=== PATIENT | female | born 1980 | race Caucasian/White ===

== ENCOUNTER 2022-03-08 02:25 | Emergency (ER) | payer SELFPAY ==
[2022-03-08 03:08] VITALS: O2SAT 100
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
[2022-03-08] MEDS ORDERED: MOTRIN 400 MG ONE (03:36)
[2022-03-08] MEDS: MOTRIN 400 MG PO ONE (03:37)
[2022-03-08 03:44] VITALS: BP 142/87; PULSE 78
--- NOTE | 2022-03-08 08:58 | XRAY ---
Indication: Pain and erythema. Injury. Comparison: None 3 view right wrist obtained. No bony, articular, or soft tissue abnormalities.
== END 2022-03-08 04:07 | disposition home or self-care (01) ==
LOC: ED 02:25
DX: S63.094A Other dislocation of right wrist and hand, initial encounter (principal); Y00.XXXA Assault by blunt object, initial encounter; M25.531 Pain in right wrist; S40.021A Contusion of right upper arm, initial encounter; Y04.2XXA Assault by strike against or bumped into by another person, initial encounter; Y07.01 Husband, perpetrator of maltreatment and neglect; Z63.5 Disruption of family by separation and divorce; Z72.0 Tobacco use; Z28.310 Unvaccinated for COVID-19
CPT/HCPCS: 73110; 99282; L3908; A9270-GY